=== PATIENT | male | born 1945 | race Caucasian/White ===

== ENCOUNTER → 2019-05-07 | Outpatient (CLI) | payer MEDICARE ==
[~2019-05-07] MED LIST: KEPPRA 500 MG500 M1 PO; KEPPRA 500 MG500 MG PO; PENICILLIN VK500 M1 PO; SYNTHROID125 MCG PO; SYNTHROID175 MCG PO
== END ==
LOC: M.RAD 15:02
DX: M25.552 Pain in left hip (principal); R10.2 Pelvic and perineal pain